=== PATIENT | male | born 1965 ===

== ENCOUNTER 2025-07-01 10:36 | Outpatient (AMB) | payer BC, SELFPAY ==
[2025-07-01 11:03] VITALS: BP 196/109; PULSE 65; RESP 18; TEMP 36.8; O2SAT 98; BMI 32.5
--- NOTE | 2025-07-01 11:03 | PD.ORTHCLVIS ---
Vital signs 07/01/25 11:03 Height 1.78 m Height Method Stated Weight 102.965 kg Weight Measurement Method Standing Scale BMI 32.5 BP 196/109 H Blood Pressure Source Automatic Cuff Blood Pressure Location Left Upper Arm Position Sitting Respiration 18 Pulse 65 Pulse Source Monitor Temp 98.3 F Temp Source Temporal Artery Scan Pulse Oximetry (%) 98 Oxygen Delivery Method Room Air Med/Allergies Allergies & Medications Allergies No Known Allergies Allergy (Verified 07/01/25 11:17) Medication Reconciliation Unobtainable 07/01/25 [History Confirmed 07/01/25] Exam Exam Breathing is nonlabored. Patient has a normal mood and affect. Bilateral extremities were evaluated and demonstrates sensation intact to light touch. Palpable pedal pulses are present. No significant edema is present. Bilateral hips were examined. The patient has no pain with log roll of the hips. Internal rotation to 30 degrees and external rotation to 30 degrees is painless. Negative FADIR. Left knee was examined today. The left knee is in reasonable alignment. Range of motion from 0-120 degrees. Knee is stable to varus and valgus as well as AP translation with <5mm. Patient has a negative McMurrays. There is no pain with patellofemoral compression and no crepitus noted. The knee is nontender to palpation. The right knee was also examined. The right knee is in varus alignment. Range of motion from 0-115 degrees. Knee is stable to varus and valgus as well as AP translation with <5mm. Patient has a negative McMurrays. There is no pain with patellofemoral compression and no crepitus noted. The knee is tender to palpation medially. Right knee x-rays demonstrates complete joint space narrowing medially and varus arthritis. Assessment and Plan Problem List (1) Right knee DJD: Status: Acute Plan: ASSESSMENT AND PLAN 1. Right knee pain: The right knee pain is likely due to [id number] arthritis, as indicated by previous x-rays. Various treatments have been tried, including braces, Celebrex, Voltaren, Aleve, Cucumber XL, and cortisone injections, with limited relief. A total knee replacement is recommended for more predictable pain relief. The procedure involves replacing the surface of the bone with metal and plastic, using a robot for accuracy. Most patients go home the same day of surgery. Recovery includes walking immediately post-surgery, often with an assistive device for 2 weeks (walker) followed by another 2 weeks (cane). 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 Driving can usually resume in 2 to 3 weeks once off pain medication. A home therapist will visit for the first 2 weeks, followed by outpatient therapy a few times a week. A weightbearing x-ray will be ordered to confirm the diagnosis and determine the extent of the replacement needed. Medical clearance from the primary care physician, Dr. Martinez, will be obtained before proceeding with surgery. Follow-up: Next available. Office Procedures GNS Level of Care Nursing/Assessment Patient Status: Initial/New Patient Nursing Assessment/Reassesment: Medication Reconciliation, Update PMH in EMR and Vital Signs Coordination of Care: Complex Care and Chronic Disease 1-5, Education Complex Pt/Fam, Consent,records obtained, informed consent, 1 Ins Authorization, Lab and Imaging orders, Results/Orders obtained and Staff clarify orders New Patient Charge New Patient Point Assignment: 1124 New Patient Point Charge: TRANSCRIPTION Level 3 ([id number]) MA Intake Visit Data Collection New Patient or Established: New Patient (never been to [facility]) Reason for Visit:: RIGHT KNEE OA Seen by Clinical Staff ONLY (RN/MA): No PCP or OBGYN visit in last 3 months: Yes Hx Now: No Do You Feel Safe at Home: Yes Authorities Contacted: N/A Questionairres Past Medical History Past Medical History Have you ever been diagnosed with any of the following: Respiratory Problems Smoking: No Smoking Cessation Counseling: No Smoking Exposure: No Subjective Visit Visit for: new patient and knee (RIGHT) Immunization / Flu Flu Vaccine in the Last 12 Months: No Flu Vaccine Exclusion Criteria: Refused by Patient History of Present Illness Chief complaint: RIGHT KNEE OA Date of 1st surgery (if applicable): 1.5 YEARS HISTORY OF PRESENT ILLNESS I, Chris Casanova, have obtained verbal consent from the patient, to be recorded during this encounter which may include, but not limited to, medical history, examination, treatment plans, and relevant health information.? Patient was informed that recording will be read and reviewed by myself before inclusion in the medical chart. The patient presents for evaluation of right knee pain. He has been experiencing discomfort in his right knee for over a year, which is more severe than the left knee. 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 He also reports a sensation of imbalance. He is not in a hurry to undergo surgery but would prefer to have it done sooner rather than later. He has commitments until mid-August 2025 that he needs to fulfill. He has been managing the pain with braces, which allow him to continue working. He has tried Celebrex and Voltaren, both of which provided some relief, but he is unsure which medication was more effective. Due to insurance issues, he discontinued these medications and started using Aleve, which he finds helpful during the day. His introduced him to Cucumber XL, which also seems to alleviate his symptoms. He has received cortisone injections and gel injections 2 or 3 times. Despite these treatments, he still experiences difficulty kneeling and feels as though he is losing his balance. Personal History Occupation: [employer] Pain Pain level (0-10): 4 Pain duration: ALL DAY Pain location: inside (medial) and posterior Pain quality: sharp, dull, aching and burning Pain timing: increases with activity Associated signs & symptoms: stiffness Ambulatory data Ambulatory device: none Treatments Number of previous injections: 3 Improvement with previous injections: Yes Number of Physical Therapy sessions: 0 Improvement with PT: No Improvement with NSAIDS: no Review of Systems Review of Systems: All systems negative unless otherwise noted in HPI.
--- NOTE | 2025-07-01 11:36 | XR_ITS ---
Examination: Bilateral knees 2 views Right lateral knee left lateral knee 2 views Bilateral axial knees single view TECHNIQUE: Bilateral AP knees standing single view, bilateral PA knees standing single view flexion Right lateral knee left lateral knee standing 2 views Bilateral axial knees single view total 5 views Date and time: July 01, 2025, 1149 hours INDICATIONS: Bilateral knee pain one year. FINDINGS: Mild osteopenia. Advanced narrowing medial joint spaces bilaterally, [id number] Bilateral moderate osteoarthritis patellofemoral joints No fractures IMPRESSION: Advanced narrowing, [id number] medial joint spaces bilaterally
== END 2025-07-01 11:42 | disposition home or self-care (01) ==
PROVIDERS: Supervising Provider Orthopaedic Surgery Adult Reconstructive Orthopaedic Surgery; Visit Provider Orthopaedic Surgery Adult Reconstructive Orthopaedic Surgery
DX: M17.11 Unilateral primary osteoarthritis, right knee (principal); M25.561 Pain in right knee; M25.862 Other specified joint disorders, left knee; M25.861 Other specified joint disorders, right knee
CPT/HCPCS: 73564; 99203; G0463